=== PATIENT | female | born 1970 | race African-American/Black ===

== ENCOUNTER 2022-02-09 14:45 | Emergency (ER) | payer MEDICARE, MEDICAID ==
--- NOTE | 2022-02-09 15:43 | ERPHSYRPT ---
- History of Present Illness Time Seen by Provider: 02/09/22 15:38 Historian: patient Exam Limitations: no limitations Patient Subjective Stated Complaint: approx 1-2 wks of feeling weak, "studdering", dropping things, States has been wheezing and sob. Triage Nursing Assessment: Patient c/o sob, wheezing for one week, also c/o dropping things, studdering and " not feeling right in the head". Patient states takes lasix for chf but has not taken recently. Has multiple complaints. States seen has [facility] yesterday. Patient states here today d/t worried about blood clot in lungs. States was prescribed po antibiotic. c/o having chronic pain all over body. Physician History: pt has had some shortness of breath and CP for 3 weeks and hx chronic pain. SHe feels nervous and thinks that may be her main problem if she could just calm down. chest is clear ht reg without M. abd soft and nontender without peritoneal signs or masses. ext with 1 + edema. reports hx CHF and fluid on lungs, but states no prior NM or stents or CAD. states had PE previously. Timing/Duration: day(s) Activities at Onset: none Location: central, shoulder Chest Pain Radiation: arm, back Severity of Pain-Max: moderate Severity of Pain-Current: moderate Associated Symptoms: shortness of breath Prior Chest Pain/Cardiac Workup: pulmonary embolism Nitro Today/Relief: 0.4 mg x 1, provided by ED Aspirin Treatment Today: 81 mg x 4, provided by ED Hx Tetanus, Diphtheria Vaccination/Date Given: Yes Hx Influenza Vaccination/Date Given: Yes Hx Pneumococcal Vaccination/Date Given: Yes Travel Risk - International Travel Have you traveled outside of the country in past 3 weeks: No - Coronavirus Screening Close contact with a COVID-19 positive Pt in past 14-21 Days: No - Vaccine Status Have you recieved a Covid-19 vaccination: Yes [employer] - Vaccination Dates Date of 2cond Vaccination (if applicable): dec 13 2020 - Review of Systems Constitutional: No Fever, No Chills Eyes: No Symptoms Ears, Nose, & Throat: No Symptoms Respiratory: Dyspnea, No Cough Cardiac: Chest Pain, No Edema, No Syncope Abdominal/Gastrointestinal: No Abdominal Pain, No Nausea, No Vomiting, No Diarrhea Genitourinary Symptoms: No Dysuria Musculoskeletal: No Back Pain, No Neck Pain Skin: No Rash Neurological: No Dizziness, No Focal Weakness, No Sensory Changes Psychological: No Symptoms Endocrine: No Symptoms All Other Systems: Reviewed and Negative - Past Medical History Pertinent Past Medical History: Yes Neurological History: No Pertinent History ENT History: No Pertinent History Cardiac History: Congestive Heart Failure Respiratory History: Lung Cancer Musculoskeletal History: No Pertinent History GI Medical History: No Pertinent History History: No Pertinent History Psycho-Social History: Anxiety Female Reproductive Disorders: No Pertinent History - Past Surgical History Past Surgical History: Yes (lung cancer surgery) Neuro Surgical History: No Pertinent History Cardiac: Other Respiratory: Lobectomy Gastrointestinal: No Pertinent History Genitourinary: No Pertinent History Musculoskeletal: No Pertinent History Female Surgical History: No Pertinent History - Social History Smoking Status: Current every day smoker Drug Use: none Patient Lives Alone: No - Nursing Vital Signs Nursing Vital Signs: Initial Vital Signs Temperature 97.7 F 02/09/22 15:02 Pulse Rate 97 H 02/09/22 15:02 Respiratory Rate 18 02/09/22 15:02 Blood Pressure 94/77 02/09/22 15:02 O2 Sat by Pulse Oximetry 95 02/09/22 15:02 Pain Scale Pain Intensity 98 - Physical Exam General Appearance: no apparent distress, alert Eye Exam: PERRL/EOMI, eyes nml inspection Ears, Nose, Throat Exam: normal ENT inspection, moist mucous membranes Neck Exam: normal inspection, non-tender, supple, full range of motion Respiratory Exam: normal breath sounds, lungs clear, No respiratory distress Cardiovascular Exam: regular rate/rhythm, normal heart sounds Gastrointestinal/Abdomen Exam: soft, No tenderness, No mass Pelvic Exam: deferred Rectal Exam: deferred Back Exam: normal inspection, No CVA tenderness, No vertebral tenderness Extremity Exam: normal inspection, normal range of motion Neurologic Exam: alert, oriented x 3, cooperative, normal mood/affect, sensation nml, No motor deficits Skin Exam: normal color, warm, dry SpO2 Interpretation: normal SpO2: 94 O2 Delivery: Room Air - Course Nursing assessment & vital signs reviewed: Yes EKG Interpreted by Me: Sinus Rhythm, Non-specific ST Changes, Other (poor r wave progression) - Radiology Exams Chest X-ray Interpretation: Reviewed by me, Other (scars and infiltrates bilaterally and slight fluid on left. ) Ordered Tests: Active Orders 24 hr Category Date Time Status EKG-ER Only STAT Care 02/09/22 15:45 Active IV Insertion STAT Care 02/09/22 15:45 Active CHEST 1 VIEW (PORTABLE) Stat Exams 02/09/22 15:45 Completed AMYLASE Stat Lab 02/09/22 16:05 Completed CBC W DIFF Stat Lab 02/09/22 16:05 Completed CMP Stat Lab 02/09/22 16:05 Completed D-DIMER QUANTITATIVE Stat Lab 02/09/22 16:05 Completed HCG QUALITATIVE,SERUM Stat Lab 02/09/22 16:05 Completed LIPASE Stat Lab 02/09/22 16:05 Completed Lactic Acid Stat Lab 02/09/22 16:00 Completed NT PRO BNP Stat Lab 02/09/22 16:05 Completed TROPONIN Q3H Lab 02/09/22 16:05 Completed TROPONIN Q3H Lab 02/09/22 19:05 Completed TROPONIN Q3H Lab 02/09/22 21:45 Ordered TROPONIN Q3H Lab 02/10/22 00:45 Ordered TROPONIN Q3H Lab 02/10/22 03:45 Ordered UA W/RFX CULTURE Stat Lab 02/09/22 18:37 Completed Respiratory Therapy Assessment DAILY RT 02/09/22 16:20 Active Medication Summary Generic Name Dose Route Start Last Admin Trade Name Freq PRN Reason Stop Dose Admin Sodium Chloride 1,000 mls @ 100 mls/hr 02/09/22 15:45 02/09/22 16:09 Sodium Chloride 0.9% 1000 Ml IV 03/11/22 15:44 100 mls/hr .Q10H OMKAR Administration Discontinued Medications Generic Name Dose Route Start Last Admin Trade Name Freq PRN Reason Stop Dose Admin Albuterol/Ipratropium 3 ml 02/09/22 15:51 02/09/22 16:17 Ipratropium/Albuterol Sulfate 3 Ml Ampul.Neb IH 02/09/22 15:52 3 ml STAT ONE Administration Albuterol/Ipratropium Confirm 02/09/22 16:09 Ipratropium/Albuterol Sulfate 3 Ml Ampul.Neb Administered 02/09/22 16:10 Dose 3 ml IH .STK-MED ONE Methylprednisolone Sodium 0 mg 02/09/22 15:51 02/09/22 16:09 Succinate 125 mg/ Sterile IV 02/09/22 15:52 125 mg Water 2 ml STAT ONE Administration Lorazepam 1 mg 02/09/22 15:47 02/09/22 16:09 Lorazepam 1 Mg Tablet PO 02/09/22 15:48 1 mg STAT ONE Administration Lorazepam Confirm 02/09/22 16:07 Lorazepam 1 Mg Tablet Administered 02/09/22 16:08 Dose 1 mg .ROUTE .STK-MED ONE Methylprednisolone Sodium Succinate Confirm 02/09/22 16:07 Methylprednis Sod Succ 125 Mg/2 Ml Vial Administered 02/09/22 16:08 Dose 125 mg .ROUTE .STK-MED ONE Morphine Sulfate 4 mg 02/09/22 16:43 02/09/22 16:53 Morphine Sulfate 4 Mg/Ml Injection IV 02/09/22 16:44 4 mg STAT ONE Administration Morphine Sulfate Confirm 02/09/22 16:53 Morphine Sulfate 4 Mg/Ml Injection Administered 02/09/22 16:54 Dose 4 mg .ROUTE .STK-MED ONE Ondansetron HCl 4 mg 02/09/22 16:43 02/09/22 16:53 Ondansetron Hcl 4 Mg/2 Ml Vial IV 02/09/22 16:44 4 mg STAT ONE Administration Ondansetron HCl Confirm 02/09/22 16:53 Ondansetron Hcl 4 Mg/2 Ml Vial Administered 02/09/22 16:54 Dose 4 mg .ROUTE .STK-MED ONE Sterile Water Confirm 02/09/22 16:07 Water For Injection,Sterile 10 Ml Vial Administered 02/09/22 16:08 Dose 10 ml IJ .STK-MED ONE Lab/Rad Data: Laboratory Result Diagrams 02/09/22 16:05 02/09/22 16:05 Laboratory Results 02/09/22 02/09/22 02/09/22 Range/Units 19:05 18:37 16:05 WBC (4.0-10.5) x10^3/uL RBC (4.1-5.4) x10^6/uL Hgb (12.0-16.0) g/dL Hct (35-47) % MCV (78-100) fL MCH (26-32) pg MCHC (32-36) g/dL RDW (11.5-14.0) % Plt Count (150-450) x10^3/uL MPV (7.5-11.0) fL Gran % (36.0-66.0) % Immature Gran % (Auto) (0.00-0.4) % Nucleat RBC Rel Count (0.00-0.1) % Eos # (Auto) (0-0.5) x10^3/uL Immature Gran # (Auto) (0.00-0.03) x10^3u/L Absolute Lymphs (auto) (1.0-4.6) x10^3/uL Absolute Monos (auto) (0.0-1.3) x10^3/uL Absolute Nucleated RBC (0.00-0.01) x10^3u/L Lymphocytes % (24.0-44.0) % Monocytes % (0.0-12.0) % Eosinophils % (0.00-5.0) % Basophils % (0.0-0.4) % Absolute Granulocytes (1.4-6.9) x10^3/uL Basophils # (0-0.4) x10^3/uL D-Dimer 0.25 (0.0-0.50) mg/L Sodium (137-145) mmol/L Potassium (3.5-5.1) mmol/L Chloride (98-107) mmol/L Carbon Dioxide (22-30) mmol/L Anion Gap (5-15) MEQ/L BUN (7-17) mg/dL Creatinine (0.52-1.04) mg/dL Estimated GFR ML/MIN Glucose (74-106) mg/dL Lactic Acid (0.4-2.0) Calcium (8.4-10.2) mg/dL Total Bilirubin (0.2-1.3) mg/dL AST (14-36) U/L ALT (0-35) U/L Alkaline Phosphatase (38-126) U/L Troponin I < 0.012 (0.000-0.034) ng/mL NT-Pro-B Natriuret Pep (0-900) pg/mL Serum Total Protein (6.3-8.2) g/dL Albumin (3.5-5.0) g/dL Amylase (30-110) U/L Lipase (23-300) U/L Serum , Qual (Negative) Urinalys Dipstick Clnc MAIN LAB Urine Color YELLOW (YELLOW) Urine Appearance CLEAR (CLEAR) Urine pH 5.5 (5-6) Ur Specific [place] 1.015 (1.005-1.025) POC Urine Protein Conf NEGATIVE (Negative) Urine Ketones NEGATIVE (NEGATIVE) Urine Nitrite NEGATIVE (NEGATIVE) Urine Bilirubin NEGATIVE (NEGATIVE) Urine Urobilinogen 0.2 (0-1) mg/dL Urine Leukocytes NEGATIVE (NEGATIVE) Urine WBC (Auto) 3-5 (0-5) /HPF Urine RBC (Auto) NONE (0-2) /HPF U Epithel Cells (Auto) RARE (FEW) /HPF Urine Bacteria (Auto) FEW (NEGATIVE) /HPF Urine RBC NEGATIVE (0-5) Trace/ul Urine Mucus (Auto) SLIGHT (NEGATIVE) /HPF Ur Culture Indicated? NO Urine Glucose NEGATIVE (NEGATIVE) mg/dL 02/09/22 02/09/22 02/09/22 Range/Units 16:05 16:05 16:05 WBC 9.2 (4.0-10.5) x10^3/uL RBC 3.73 L (4.1-5.4) x10^6/uL Hgb 10.6 L (12.0-16.0) g/dL Hct 32.3 L (35-47) % MCV 86.6 (78-100) fL MCH 28.4 (26-32) pg MCHC 32.8 (32-36) g/dL RDW 17.8 H (11.5-14.0) % Plt Count 228 (150-450) x10^3/uL MPV 10.5 (7.5-11.0) fL Gran % 68.8 H (36.0-66.0) % Immature Gran % (Auto) 0.3 (0.00-0.4) % Nucleat RBC Rel Count 0.0 (0.00-0.1) % Eos # (Auto) 0.21 (0-0.5) x10^3/uL Immature Gran # (Auto) 0.03 (0.00-0.03) x10^3u/L Absolute Lymphs (auto) 1.84 (1.0-4.6) x10^3/uL Absolute Monos (auto) 0.77 (0.0-1.3) x10^3/uL Absolute Nucleated RBC 0.00 (0.00-0.01) x10^3u/L Lymphocytes % 20.0 L (24.0-44.0) % Monocytes % 8.4 (0.0-12.0) % Eosinophils % 2.3 (0.00-5.0) % Basophils % 0.2 (0.0-0.4) % Absolute Granulocytes 6.32 (1.4-6.9) x10^3/uL Basophils # 0.02 (0-0.4) x10^3/uL D-Dimer (0.0-0.50) mg/L Sodium 138 (137-145) mmol/L Potassium 4.2 (3.5-5.1) mmol/L Chloride 103 (98-107) mmol/L Carbon Dioxide 31 H (22-30) mmol/L Anion Gap 8.3 (5-15) MEQ/L BUN 16 (7-17) mg/dL Creatinine 0.78 (0.52-1.04) mg/dL Estimated GFR > 60.0 ML/MIN Glucose 123 H (74-106) mg/dL Lactic Acid (0.4-2.0) Calcium 8.6 (8.4-10.2) mg/dL Total Bilirubin 0.30 (0.2-1.3) mg/dL AST 30 (14-36) U/L ALT 43 H (0-35) U/L Alkaline Phosphatase 118 (38-126) U/L Troponin I (0.000-0.034) ng/mL NT-Pro-B Natriuret Pep 254 (0-900) pg/mL Serum Total Protein 6.7 (6.3-8.2) g/dL Albumin 3.5 (3.5-5.0) g/dL Amylase 66 (30-110) U/L Lipase 48 (23-300) U/L Serum , Qual NEGATIVE (Negative) Urinalys Dipstick Clnc Urine Color (YELLOW) Urine Appearance (CLEAR) Urine pH (5-6) Ur Specific [place] (1.005-1.025) POC Urine Protein Conf (Negative) Urine Ketones (NEGATIVE) Urine Nitrite (NEGATIVE) Urine Bilirubin (NEGATIVE) Urine Urobilinogen (0-1) mg/dL Urine Leukocytes (NEGATIVE) Urine WBC (Auto) (0-5) /HPF Urine RBC (Auto) (0-2) /HPF U Epithel Cells (Auto) (FEW) /HPF Urine Bacteria (Auto) (NEGATIVE) /HPF Urine RBC (0-5) Trace/ul Urine Mucus (Auto) (NEGATIVE) /HPF Ur Culture Indicated? Urine Glucose (NEGATIVE) mg/dL 02/09/22 02/09/22 Range/Units 16:05 16:00 WBC (4.0-10.5) x10^3/uL RBC (4.1-5.4) x10^6/uL Hgb (12.0-16.0) g/dL Hct (35-47) % MCV (78-100) fL MCH (26-32) pg MCHC (32-36) g/dL RDW (11.5-14.0) % Plt Count (150-450) x10^3/uL MPV (7.5-11.0) fL Gran % (36.0-66.0) % Immature Gran % (Auto) (0.00-0.4) % Nucleat RBC Rel Count (0.00-0.1) % Eos # (Auto) (0-0.5) x10^3/uL Immature Gran # (Auto) (0.00-0.03) x10^3u/L Absolute Lymphs (auto) (1.0-4.6) x10^3/uL Absolute Monos (auto) (0.0-1.3) x10^3/uL Absolute Nucleated RBC (0.00-0.01) x10^3u/L Lymphocytes % (24.0-44.0) % Monocytes % (0.0-12.0) % Eosinophils % (0.00-5.0) % Basophils % (0.0-0.4) % Absolute Granulocytes (1.4-6.9) x10^3/uL Basophils # (0-0.4) x10^3/uL D-Dimer (0.0-0.50) mg/L Sodium (137-145) mmol/L Potassium (3.5-5.1) mmol/L Chloride (98-107) mmol/L Carbon Dioxide (22-30) mmol/L Anion Gap (5-15) MEQ/L BUN (7-17) mg/dL Creatinine (0.52-1.04) mg/dL Estimated GFR ML/MIN Glucose (74-106) mg/dL Lactic Acid 0.8 (0.4-2.0) Calcium (8.4-10.2) mg/dL Total Bilirubin (0.2-1.3) mg/dL AST (14-36) U/L ALT (0-35) U/L Alkaline Phosphatase (38-126) U/L Troponin I < 0.012 (0.000-0.034) ng/mL NT-Pro-B Natriuret Pep (0-900) pg/mL Serum Total Protein (6.3-8.2) g/dL Albumin (3.5-5.0) g/dL Amylase (30-110) U/L Lipase (23-300) U/L Serum , Qual (Negative) Urinalys Dipstick Clnc Urine Color (YELLOW) Urine Appearance (CLEAR) Urine pH (5-6) Ur Specific [place] (1.005-1.025) POC Urine Protein Conf (Negative) Urine Ketones (NEGATIVE) Urine Nitrite (NEGATIVE) Urine Bilirubin (NEGATIVE) Urine Urobilinogen (0-1) mg/dL Urine Leukocytes (NEGATIVE) Urine WBC (Auto) (0-5) /HPF Urine RBC (Auto) (0-2) /HPF U Epithel Cells (Auto) (FEW) /HPF Urine Bacteria (Auto) (NEGATIVE) /HPF Urine RBC (0-5) Trace/ul Urine Mucus (Auto) (NEGATIVE) /HPF Ur Culture Indicated? Urine Glucose (NEGATIVE) mg/dL - Progress Progress: improved, re-examined Air Movement: good Progress Note: 02/09/22 20:45 pt feels well now and prefers to have her COPD exacerbation as outpt and wishes no further cardiovascular or cerebrovascular eval in house at this time after discussion of risk and benefits, including possibility of undetected pathology of cardiac and vascular nature or other systems, and has the capacity to make this choice with a normal mental status at this time. BNP is normal range trops neg and not clinically any CHF at this time. CP and SOBreath have resolved. 02/09/22 20:48 Blood Culture(s) Obtained: No Antibiotics given: Yes Counseled pt/family regarding: lab results, diagnosis, need for follow-up, rad results - Departure Departure Disposition: Home Clinical Impression: exacerbation of COPD Condition: Good Critical Care Time: No Instructions: Exacerbation of COPD (DC) Additional Instructions: although we did not find any acute heart problems or heart failure or blood clots at this time, there still could be conditions developing undetected so f ollow-up with your Drs is important and to return or be seen meantime if symptoms of concern recur. Prescriptions: Levofloxacin [Levofloxacin 500 MG Tablet] 500 mg PO DAILY #10 tablet Methylprednisolone Packet [Medrol Dosepack] 4 mg PO UD #30 packet
[2022-02-09] MEDS ORDERED: Sodium Chloride 0.9% 1000 ML 1,000 ML IV SCH (15:45)
[2022-02-09] MEDS ORDERED: Ativan 1 MG PO ONE (15:47)
[2022-02-09] MEDS ORDERED: DUONEB 0.5-3 MG/3 ml Neb IH ONE ×2 (15:51→16:09)
[2022-02-09] MEDS ORDERED: solu-MEDROL 125 MG, Sterile H2O 10 ml 2 ML IV ONE ×2 (15:51)
[2022-02-09] MEDS ORDERED: Ativan 1 MG ONE (16:07)
[2022-02-09] MEDS ORDERED: solu-MEDROL ONE (16:07)
[2022-02-09] MEDS ORDERED: Sodium Chloride 0.9% 1000 ML 1,000 ML ONE (16:07)
[2022-02-09] MEDS ORDERED: Sterile H2O 10 ml IJ ONE (16:07)
[2022-02-09 16:11] LABS: Absolute Neutrophil Ct (ANC) 6.32 x10^3/uL (1.4-6.9); Basophil (Absolute #) 0.02 x10^3/uL (0-0.4); Eosinophil % 2.3 % (0.00-5.0); Eosinophil (Absolute #) 0.21 x10^3/uL (0-0.5); Hematocrit 32.3 % (35-47); Hemoglobin 10.6 g/dL (12.0-16.0); Lymphocyte (Absolute #) 1.84 x10^3/uL (1.0-4.6); Mean Cell Volume 86.6 fL (78-100); Mean Corpuscular Hemoglobin 28.4 pg (26-32); Mean Corpuscular Hgb Concent. 32.8 g/dL (32-36); Mean Platelet Volume 10.5 fL (7.5-11.0); Monocyte (Absolute #) 0.77 x10^3/uL (0.0-1.3); Monocytes % 8.4 % (0.0-12.0); Neutrophil % 68.8 % (36.0-66.0); Platelet Count 228 x10^3/uL (150-450); Red Blood Count 3.73 x10^6/uL (4.1-5.4); Red Cell Distribution Width 17.8 % (11.5-14.0); White Blood Count 9.2 x10^3/uL (4.0-10.5)
[2022-02-09 16:36] LABS: ALBUMIN 3.5 g/dL (3.5-5.0); ALKALINE PHOSPHATASE 118 U/L (38-126); AMYLASE 66 U/L (30-110); ANION GAP 8.3 MEQ/L (5-15); BLOOD UREA NITROGEN 16 mg/dL (7-17); CHLORIDE 103 mmol/L (98-107); Calcium 8.6 mg/dL (8.4-10.2); Carbon Dioxide 31 mmol/L (22-30); Creatinine 1 0.78 mg/dL (0.52-1.04); EST GLOMERULAR FILTRATION RATE > 60.0 ML/MIN; Glucose 123 mg/dL (74-106); LIPASE 48 U/L (23-300); NT PRO BNP 254 pg/mL (0-900); Potassium 4.2 mmol/L (3.5-5.1); SGOT/AST 30 U/L (14-36); SGPT/ALT 43 U/L (0-35); SODIUM 138 mmol/L (137-145); Total Protein 6.7 g/dL (6.3-8.2)
[2022-02-09] MEDS ORDERED: MORPHINE SULFATE 4 MG INJ IV ONE (16:43)
[2022-02-09] MEDS ORDERED: Zofran 4 MG/2 ML VIAL IV ONE (16:43)
[2022-02-09] MEDS ORDERED: Zofran 4 MG/2 ML VIAL ONE (16:53)
[2022-02-09] MEDS ORDERED: MORPHINE SULFATE 4 MG INJ ONE (16:53)
[2022-02-09 19:20] LABS: Bacteria FEW /HPF (NEGATIVE); Epithelial Cells RARE /HPF (FEW); Mucus SLIGHT /HPF (NEGATIVE)
[2022-02-09 19:21] LABS: Appearance CLEAR (CLEAR); Bilirubin NEGATIVE (NEGATIVE); Glucose NEGATIVE (NEGATIVE); Ketones NEGATIVE (NEGATIVE)
[2022-02-09 19:22] LABS: Dipstick done @ ? MAIN LAB; Nitrite NEGATIVE (NEGATIVE); Ph 5.5 (5-6); Protein,Urine Dip NEGATIVE (Negative); RBC NEGATIVE Ery/ul (0-5); Specific Gravity 1.015 (1.005-1.025); Urine Cultured Indicated? NO; Urobilinogen 0.2 mg/dL (0-1)
--- NOTE | 2022-02-09 19:28 | XRAY ---
Indication: Left chest pain. History lung cancer. Comparison: None Portable chest demonstrates bilateral mid to lower lung infiltrates/atelectasis without consolidation/large effusion. Heart not enlarged. Incidental right hilar and right midlung suture material. Bony thorax intact with mild degenerative changes and mild scoliosis.
[2022-02-09 20:09] VITALS: BP 128/70; PULSE 80
[2022-02-09 20:49] VITALS: O2SAT 94
== END 2022-02-09 21:32 | disposition home or self-care (01) ==
LOC: ED 14:45
DX: J44.1 Chronic obstructive pulmonary disease with (acute) exacerbation (principal); R07.9 Chest pain, unspecified; Z72.0 Tobacco use; R06.02 Shortness of breath; I50.9 Heart failure, unspecified; Z79.52 Long term (current) use of systemic steroids
CPT/HCPCS: 36000; 36415; 71045; 80053; 81015; 82150; 83605; 83690; 83880; 84484; 84703; 85025; 85379; 93005; 94640; 96374; 96375; 96376; 99284; J2270; J2405; J2930; A9270-GY